=== PATIENT | male | born 1995 | race Caucasian/White ===

== ENCOUNTER 2021-05-09 06:54 | Emergency (ER) | payer OTHER ==
[~2021-05-09] VITALS: Ht 182.9 cm; Wt 87.0 kg
[2021-05-09 11:01] VITALS: BP 123/71
== END 2021-05-09 11:03 | disposition home or self-care (01) ==
LOC: M ED 06:54
DX: R52 Pain, unspecified (principal); R68.83 Chills (without fever); E11.9 Type 2 diabetes mellitus without complications

== ENCOUNTER 2021-10-07 08:36 | Emergency (ER) | payer OTHER ==
[~2021-10-07] VITALS: Ht 182.9 cm; Wt 84.1 kg
[2021-10-07 08:47] VITALS: BP 139/74
== END 2021-10-07 09:40 | disposition home or self-care (01) ==
LOC: M ED 08:36
DX: S62.300A Unspecified fracture of second metacarpal bone, right hand, initial encounter for closed fracture (principal); S62.302A Unspecified fracture of third metacarpal bone, right hand, initial encounter for closed fracture; X58.XXXA Exposure to other specified factors, initial encounter; Y92.9 Unspecified place or not applicable; Y93.9 Activity, unspecified; Y99.9 Unspecified external cause status

== ENCOUNTER → 2021-10-15 | Outpatient (CLI) | payer OTHER | LOC: M SOG 15:45 | PROVIDERS: ATTEND Orthopaedic Surgery Hand Surgery | DX: M79.641 Pain in right hand (principal) ==

== ENCOUNTER → 2021-10-23 | Outpatient (CLI) | payer OTHER | LOC: M SOG 08:24 | PROVIDERS: ATTEND Orthopaedic Surgery Hand Surgery | DX: S82.851D Displaced trimalleolar fracture of right lower leg, subsequent encounter for closed fracture with routine healing (principal) ==

== ENCOUNTER → 2021-11-02 | Outpatient (CLI) | payer OTHER | LOC: M SOG 12:59 | PROVIDERS: ATTEND Physician Assistant | DX: S62.332D Displaced fracture of neck of third metacarpal bone, right hand, subsequent encounter for fracture with routine healing (principal); X58.XXXD Exposure to other specified factors, subsequent encounter; Y92.9 Unspecified place or not applicable; Y93.9 Activity, unspecified; Y99.9 Unspecified external cause status ==